=== PATIENT | male | born 1960 | race Caucasian/White ===

== ENCOUNTER 2018-12-22 12:36 | Inpatient (IN) | payer SELFPAY ==
[~2018-12-22] VITALS: Ht 180.3 cm; Wt 136.1 kg
[2018-12-22 13:50] LABS: HEMATOCRIT. 42.1 % (42.0-52.0); HEMOGLOBIN. 13.9 g/dL (14.0-18.0); MEAN CORPUSCULAR HEMOGLOBIN 27.5 pg (28.0-32.0); MEAN CORPUSCULAR VOLUME 83.1 fL (80.0-94.0); PLATELET 304 x1000/uL (130-400); RED BLOOD CELL COUNT 5.06 mill/uL (4.7-6.1); RED CELL DISTRIBUTION WIDTH 15.3 % (11.6-14.6)
[2018-12-22 13:54] LABS: CHLORIDE 103 mEq/L (98-107)
[2018-12-22] MEDS ORDERED: SODIUM CHLORIDE 0.9% 1,000 ML IV ONE ×4 (13:57→15:30)
[2018-12-22] MEDS ORDERED: VANCOMYCIN 1 G PREMIX 200 ML IV ONE (14:00)
[2018-12-22] MEDS ORDERED: PIPERACILLIN/TAZ 3.375G PREMIX 50 ML IV ONE (14:00)
[2018-12-22 14:15] LABS: PLATELET ESTIMATE NORMAL
[2018-12-22] MEDS ORDERED: ASPIRIN 325MG TABLET PO ONE (14:30)
[2018-12-22] MEDS ORDERED: ENOXAPARIN 150MG/ML SYR SUBCUT ONE (15:00)
[2018-12-22 15:07] LABS: CLARITY URINE TURBID (CLEAR); KETONES URINE TRACE (NEGATIVE); LEUKOCYTE ESTERASE URINE 3+ (NEGATIVE); NITRITE URINE NEGATIVE (NEGATIVE); OCCULT BLOOD URINE 3+ (NEGATIVE); PROTEIN URINE 3+ (NEGATIVE)
[2018-12-22 15:13] LABS: COLOR URINE DARK YELLOW (YELLOW)
[2018-12-22] MEDS ORDERED: ONDANSETRON HCL 4MG/2ML INJ IV PRN (15:30)
[2018-12-22] MEDS ORDERED: MAGNESIUM/ALUMINUM HYDROXIDE/SIMETHICONE 30ML UDC PO PRN (15:30)
[2018-12-22] MEDS ORDERED: HYDROCODONE/ACETAMINOPHEN 5/325MG TABLET PO PRN (15:30)
[2018-12-22] MEDS ORDERED: CLONIDINE 0.1MG TABLET PO PRN (15:30)
[2018-12-22] MEDS ORDERED: DILTIAZEM HCL 30MG TABLET PO PRN ×2 (15:30→19:55)
[2018-12-22] MEDS ORDERED: LEVOFLOXACIN 500MG PREMIX 100 ML IV SCH (15:30)
[2018-12-22] MEDS ORDERED: MORPHINE SULFATE 2 MG/ML CPJ (NOT FOR IM USE) IV PRN (15:30)
[2018-12-22] MEDS ORDERED: ACETAMINOPHEN 325MG TABLET PO PRN (15:30)
[2018-12-22] MEDS ORDERED: DOCUSATE SODIUM 100MG CAPSULE PO PRN (15:30)
[2018-12-22] MEDS ORDERED: DILTIAZEM HCL 5MG/ML 5ML VIAL IV NR (21:07)
[2018-12-22] MEDS ORDERED: DILTIAZEM HCL 60MG TABLET PO NR (21:07)
[2018-12-22] MEDS ORDERED: DIGOXIN 250MCG TABLET PO NR (21:08)
[2018-12-22] MEDS ORDERED: DIGOXIN 500MCG/2ML AMP IV NR (23:15)
[2018-12-22] MEDS ORDERED: SODIUM CHLORIDE 0.9% 500 ML IV NR (23:15)
[2018-12-22 23:50] VITALS: BP 134/75
[2018-12-23] VITALS (12 sets, daily range): BP systolic 100–143; BP diastolic 59–81
[2018-12-23 00:05] LABS: CREATINE KINASE 57 IU/L (39-308); CREATINE KINASE MB FRACTION < 1.0 ng/mL (0.5-3.6)
[2018-12-23] MEDS: SODIUM CHLORIDE 0.45% 1,000 ML IV SCH ×2 (00:57→16:23)
[2018-12-23] MEDS: DILTIAZEM HCL 60MG TABLET PO SCH ×5 (00:57→23:59)
[2018-12-23] MEDS: LEVOFLOXACIN 500MG PREMIX 100 ML IV SCH (01:00)
[2018-12-23] MEDS ORDERED: VANCOMYCIN 1250MG in DEXTROSE 5% WATER 250ML IV SCH (04:00)
[2018-12-23 06:03] LABS: HEMATOCRIT. 32.7 % (42.0-52.0); HEMOGLOBIN. 11.3 g/dL (14.0-18.0); MEAN CORPUSCULAR HEMOGLOBIN 28.1 pg (28.0-32.0); MEAN CORPUSCULAR VOLUME 81.4 fL (80.0-94.0); MEAN PLATELET VOLUME 8.1 fl (7.4-10.4); PLATELET 233 x1000/uL (130-400); RED BLOOD CELL COUNT 4.02 mill/uL (4.7-6.1); RED CELL DISTRIBUTION WIDTH 14.9 % (11.6-14.6)
[2018-12-23 06:33] LABS: CHLORIDE 103 mEq/L (98-107)
[2018-12-23 06:46] LABS: CREATINE KINASE 55 IU/L (39-308); CREATINE KINASE MB FRACTION < 1.0 ng/mL (0.5-3.6); T4 FREE 1.15 ng/dL (0.76-1.46)
[2018-12-23 06:47] LABS: LDL CHOLESTEROL 80 mg/dL (5-100)
[2018-12-23 06:48] LABS: HDL CHOLESTEROL 20 mg/dL (40-59)
[2018-12-23] MEDS ORDERED: ENOXAPARIN 30MG/0.3ML SYR SUBCUT SCH (09:00)
[2018-12-23] MEDS ORDERED: DIGOXIN 500MCG/2ML AMP IV SCH (10:00)
[2018-12-23 11:57] LABS: PLATELET ESTIMATE NORMAL
[2018-12-23] MEDS: IBUPROFEN 200MG TABLET PO PRN (12:24)
[2018-12-23 14:07] LABS: *COCAINE SCREEN URINE NEGATIVE (NEGATIVE); METHADONE URINE SCREEN NEGATIVE (NEGATIVE); OPIATES URINE SCREEN NEGATIVE (NEGATIVE)
[2018-12-23 14:08] LABS: *AMPHETAMINES SCREEN URINE PRESUMTIVE POSITIVE (NEGATIVE); *BARBITURATES SCREEN URINE NEGATIVE (NEGATIVE); *BENZODIAZEPINES SCREEN URINE NEGATIVE (NEGATIVE); CANNABINOID URINE SCREEN PRESUMTIVE POSITIVE (NEGATIVE); PHENCYCLIDINE URINE SCREEN NEGATIVE (NEGATIVE)
[2018-12-23] MEDS: VANCOMYCIN 1250MG in DEXTROSE 5% WATER 250ML IV SCH (16:23)
[2018-12-23] MEDS: ENOXAPARIN 40MG/0.4ML SYR SUBCUT SCH (21:30)
[2018-12-24] VITALS (10 sets, daily range): BP systolic 111–157; BP diastolic 38–87
[2018-12-24] MEDS: LEVOFLOXACIN 500MG PREMIX 100 ML IV SCH (01:06)
[2018-12-24] MEDS: IBUPROFEN 200MG TABLET PO PRN (03:39)
[2018-12-24] MEDS: VANCOMYCIN 1250MG in DEXTROSE 5% WATER 250ML IV SCH ×2 (03:43→14:53)
[2018-12-24] MEDS: SODIUM CHLORIDE 0.45% 1,000 ML IV SCH (03:44)
[2018-12-24] MEDS: DILTIAZEM HCL 60MG TABLET PO SCH ×3 (06:00→16:29)
[2018-12-24] MEDS: ENOXAPARIN 40MG/0.4ML SYR SUBCUT SCH (09:51)
[2018-12-24] MEDS ORDERED: DIGOXIN 500MCG/2ML AMP IV SCH (11:00)
[2018-12-24] MEDS ORDERED: APIXABAN 5 MG TABLET PO SCH (17:00)
== END 2018-12-24 16:06 | disposition home or self-care (01) | DRG 720 ==
LOC: ER 12:36 → 3WST 15:00 → EDBEDREQ 15:08 → SUPCPDRO 15:28 → CANRESERV 19:54 → ENRESERV 19:54 → EDBEDREQ 20:18 → EDBEDREQTM 20:18 → EDBEDREQSVC 20:18 → ENRESERV 22:39
PROVIDERS: ADMIT Hospitalist; ATTEND Hospitalist
DX: A41.9 Sepsis, unspecified organism (principal); N17.0 Acute kidney failure with tubular necrosis; E44.0 Moderate protein-calorie malnutrition; D68.59 Other primary thrombophilia; I08.1 Rheumatic disorders of both mitral and tricuspid valves; I50.9 Heart failure, unspecified; I11.0 Hypertensive heart disease with heart failure; I48.91 Unspecified atrial fibrillation; I27.20 Pulmonary hypertension, unspecified; E66.9 Obesity, unspecified; F15.10 Other stimulant abuse, uncomplicated; F17.200 Nicotine dependence, unspecified, uncomplicated; N39.0 Urinary tract infection, site not specified; R73.9 Hyperglycemia, unspecified; Z71.6 Tobacco abuse counseling; Z71.3 Dietary counseling and surveillance; Z68.41 Body mass index [BMI] 40.0-44.9, adult
CPT/HCPCS: 36415; 71045; 80061; 80202; 80305; 82550; 82553; 83036; 83605; 83880; 84439; 84443; 84484; 87077; 87186; 93005; 93306; 93970; 96365; 96366; 99291; J1160; J1650; J1956; J2543; J3370; J3490; J7030; J7060